=== PATIENT | female | born 1995 | race Caucasian/White ===

== ENCOUNTER 2024-12-23 06:25 | Emergency (ER) | payer BC, SELFPAY ==
[2024-12-23 06:25] VITALS: BP 160/98; PULSE 111; RESP 16; TEMP 36.1; O2SAT 100; BMI 32.4
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
[2024-12-23] MEDS: Ketorolac 30 MG/ML Syringe IM (06:43)
== END 2024-12-23 07:23 | disposition home or self-care (01) ==
PROVIDERS: Emergency Provider Surgery; PCP Nurse Practitioner Primary Care; Visit Provider Surgery
DX: M54.50 Low back pain, unspecified (principal); V89.2XXA Person injured in unspecified motor-vehicle accident, traffic, initial encounter; Z87.891 Personal history of nicotine dependence
CPT/HCPCS: 96372; 99282